=== PATIENT | male | born 1955 | race Caucasian/White ===

== ENCOUNTER 2019-08-22 20:37 | Emergency (ER) | payer OTHER ==
[~2019-08-22] VITALS: Ht 177.8 cm; Wt 83.9 kg
[2019-08-22 20:40] VITALS: BP 129/82
--- NOTE | 2019-08-22 20:40 | NUR ---
to bed # 01 ambulatory
--- NOTE | 2019-08-22 21:17 | NUR ---
PT UNABLE TO PROVIDE URINE AT THIS TIME
--- NOTE | 2019-08-22 21:22 | NUR ---
64 Y/O MALE PRESENTS TO ED, C/O PAINFUL URINATION THAT STARTED ON MONDAY. PT STATES DIFFICULTY URINATING AND HAVING TO BEAR DOWN REALLY HARD. PT C/O LOWER QUADRANT ABDOMINAL PAIN; 03/02. PT BS ACTIVE X4 QUADRANTS. PT DENIES ANY ABNORMAL DRAINAGE. PT VSS. ERMD AWARE. WILL CONTINUE TO MONITOR.
--- NOTE | 2019-08-22 21:30 | NUR ---
PT PROVIDED URINE SPECIMEN AT THIS TIME
--- NOTE | 2019-08-22 21:53 | NUR ---
Dr. Lynn examining patient.
[2019-08-22 22:11] VITALS: BP 111/80
[2019-08-22 22:23] LABS: APPEARANCE,URINE CLOUDY (CLEAR); BILIRUBIN,URINE NEGATIVE (NEGATIVE); BLOOD, URINE 3+ (NEGATIVE); COLOR,URINE YELLOW (YELLOW); LEUKOCYTE ESTERASE ,URINE TRACE (NEGATIVE); NITRITE, URINE NEGATIVE (NEGATIVE); PH,URINE 5.5 (5.0-9.0); UGLUCOSE 3+ (NEGATIVE)
[2019-08-22 22:45] LABS: RBC,URINE TOO NUMEROUS TO COUN /HPF (0-5)
--- NOTE | 2019-08-22 22:55 | NUR ---
PT DISCHARGED WITH PAPERWORK. EDUCATED PT REGARDING MEDICATIONS AND D/C INSTRUCTIONS. PT VERBALIZED UNDERSTANDING. INSERTED VELAZCO CATHETER 16 DJIBOUTIAN; PT TOLERATED PROCEDURE. TOLD PT TO FOLLOW UP WITH PCP AND WHEN TO RETURN TO ED. PT VSS. KARID AWARE. WILL CONTINUE TO MONITOR.
--- NOTE | 2019-08-25 17:10 | NUR ---
LAB REPORTED KLEBSIELLA PNEUMONIAE IN PT'S URINE CULTURE ---SAMPLE RECEIVED 08/22/19 RX BACTRIM WH[address] RES[address]LECLERE GONZALEZAYED TO CHANGE TO LEVOFLOXACIN 500MG QD X 14DAYS LEFT A MESSAGE TO NUMBER PROVIDED WITH CALL BACK NUMBER TO ER FOR PREFERRED PHARMACY TO CALL IN RX
--- NOTE | 2019-08-26 11:41 | NUR ---
PT'S CALLED BACK AND INFORMED NEW MEDICATION WILL BE CALLED TO PHARMACY OF CHOICE SHE ASK FOR IT TO BE SENT TO [facility] [address] [phone]
== END 2019-08-22 22:55 | disposition home or self-care (01) ==
LOC: MED 20:37
DX: R33.9 Retention of urine, unspecified (principal); E11.9 Type 2 diabetes mellitus without complications; Z98.890 Other specified postprocedural states
CPT/HCPCS: 51702; 81001; 87086; 87186; 99284

== ENCOUNTER 2019-09-04 06:15 | Emergency (ER) | payer OTHER ==
[~2019-09-04] VITALS: Ht 177.8 cm; Wt 83.0 kg
[2019-09-04 06:25] VITALS: BP 117/73
--- NOTE | 2019-09-04 06:25 | NUR ---
TO BED #11 AMBULATORY
--- NOTE | 2019-09-04 06:45 | NUR ---
64 year old male complains of difficulty urinating. patient states he had his indwelling catheter removed yesterday at 330pm. pt states he has trouble urinating and feels discomfort in bladder area. Pt is requesting straight catheter. patient aox4, breathing even and unlabored, skin warm and dry. bed in lowest position, locked, bed rail upx1. at bedside. ermd made aware of status pmh - enlarged prostate allergies - nka
--- NOTE | 2019-09-04 06:50 | NUR ---
per dr guevara to straight cath patient, straight cath performed without difficulty and with sterile procedure. 80ml of urine obtained and sent to lab
[2019-09-04 07:00] VITALS: BP 117/73
--- NOTE | 2019-09-04 07:00 | NUR ---
Patient discharged with v/s stable. Written and verbal after care instructions about dysuria given and explained. Patient verbalized understanding. Ambulatory with steady gait. All questions addressed prior to discharge. Advised to follow up with PMD.
[2019-09-04 07:29] LABS: APPEARANCE,URINE SLIGHTLY HAZY (CLEAR); COLOR,URINE YELLOW (YELLOW)
[2019-09-04 07:30] LABS: BILIRUBIN,URINE NEGATIVE (NEGATIVE); BLOOD, URINE 1+ (NEGATIVE); LEUKOCYTE ESTERASE ,URINE NEGATIVE (NEGATIVE); NITRITE, URINE NEGATIVE (NEGATIVE); UGLUCOSE 1+ (NEGATIVE)
[2019-09-04 07:31] LABS: RBC,URINE 0-5 /HPF (0-5); WBC,URINE 0-5 /HPF (0-5)
== END 2019-09-04 07:00 | disposition home or self-care (01) ==
LOC: MED 06:15
DX: R33.9 Retention of urine, unspecified (principal); R30.0 Dysuria; E11.9 Type 2 diabetes mellitus without complications
CPT/HCPCS: 81001; 99283; C1758